=== PATIENT | female | born 1955 | race Hispanic/Latino ===

== ENCOUNTER 2022-08-10 02:01 | Emergency (ER) | payer OTHER ==
[2022-08-10] MEDS ORDERED: NA CHLORIDE 0.9% 1,000 ML ONE ×3 (02:25→05:45)
[2022-08-10] MEDS ORDERED: ONDANSETRON 4 MG/2 ML VIAL ONE ×2 (03:10→05:09)
[2022-08-10] MEDS ORDERED: CEFTRIAXONE 1000 MG/VIAL ONE (03:10)
[2022-08-10] MEDS ORDERED: FAMOTIDINE 20 MG/2 ML VIAL IV ONE (03:11)
[2022-08-10] MEDS ORDERED: NA CHLORIDE 0.9% 250 ML ONE ×2 (03:11→06:17)
[2022-08-10] MEDS ORDERED: AZITHROMYCIN 500 MG INJ IVPB ONE (03:11)
[2022-08-10 03:20] LABS: Absolute Lymphocytes (CBC) 2.5 K/uL (0.7-4.9); Hematocrit 49.1 % (36.0-45.0); Lymphocytes % 18.6 % (15.3-44.8); MCV 93.4 fL (80-100); MPV 8.6 fL (7.6-11.3); RBC Red Blood Cell Count 5.26 M/uL (3.86-4.86)
[2022-08-10 03:21] LABS: Protime INR 1.04
[2022-08-10 03:22] LABS: Urine Blood Trace-intact (Negative); Urine Glucose Negative (Negative); Urine Protein 2+ (Negative); Urine Specific Gravity >=1.030 (1.005-1.030)
[2022-08-10 03:23] LABS: Albumin 3.2 g/dL (3.4-5.0); Bilirubin Direct 0.2 mg/dL (0-0.2); Bilirubin Total 0.6 mg/dL (0.2-1.0); Magnesium 2.3 mg/dL (1.8-2.4); Potassium 4.1 mmol/L (3.5-5.1); Protein, Total 6.8 g/dL (6.4-8.2)
[2022-08-10 03:24] LABS: Troponin High Sensitivity 184.3 pg/mL (<58.9)
[2022-08-10] MEDS ORDERED: DIGOXIN 0.25 MG/ML AMP ONE (03:24)
[2022-08-10] MEDS ORDERED: METOPROLOL TARTRATE 5 MG/5 ML INJ IV ONE (03:53)
[2022-08-10] MEDS ORDERED: HYDROCORTISONE SUC 100 MG INJ ONE (03:54)
[2022-08-10] MEDS ORDERED: Magnesium Sulfate 2gm IVPB 0 G/0 ML BAG IV ONE (03:54)
[2022-08-10 03:56] LABS: Thyroid Stimulating Hormone 5.39 uIU/mL (0.360-3.740)
[2022-08-10] MEDS ORDERED: MAGNESIUM SULFATE 1 gm IVPB 0 GM/0 ML BAG IV ONE (03:56)
[2022-08-10 03:58] LABS: SARS-COV-2 RT PCR NEGATIVE (NEGATIVE)
[2022-08-10] MEDS ORDERED: SODIUM BICARB 50 MEQ/50ML VIAL ONE (05:30)
[2022-08-10] MEDS ORDERED: D5W 1,000 ML IV ONE (05:30)
--- NOTE | 2022-08-10 05:42 | ER ---
Nurse's Notes [facility] Name: Virginia Tobias Age: 67 yrs Sex: Female : 1955 Arrival Date: 08/10/2022 Time: 02:05 Bed 6 Private MD: Diagnosis: Hypotension, unspecified;Hypothermia, initial encounter;Nausea;Vomiting;Type 2 diabetes mellitus with hyperglycemia;Acute kidney failure, unspecified;Hypo-osmolality and hyponatremia;Obesity, unspecified;Persistent atrial fibrillation-WITH RVR;Influenza due to identified novel influenza A virus;Weakness;Non ST elevation [place] Presentation: 08/10 02:15 Chief complaint: Patient states: she was diagnosed with the flu with symptoms x 5 days bb shortness of breath, vomiting, can't hold anything down. Coronavirus screen: Client presents with at least one sign or symptom that may indicate coronavirus-19. Ebola Screen: No symptoms or risks identified at this time. Initial Sepsis Screen: Does the patient meet any 2 criteria? RR > 20 per min. HR > 90 bpm. Does the patient have a suspected source of infection? Yes: Productive cough/pneumonia. Risk Assessment: Do you want to hurt yourself or someone else? Patient reports no desire to harm self or others. Onset of symptoms was August 05, 2022. 02:15 Method Of Arrival: Wheelchair bb 02:15 Acuity: RAFFI 3 bb Historical: - Allergies: 02:36 Codeine; bb 02:36 eggs; bb - Home Meds: 02:36 levothyroxine oral [Active]; Verapamil Oral [Active]; atorvastatin oral [Active]; bb Humalog Mix 75-25 Sub-Q [Active]; - PMHx: 02:36 Hypertensive disorder; Diabetes mellitus; bb - Immunization history:: Client reports having NOT received the Covid vaccine. - Social history:: Smoking status: unknown. - Family history:: not pertinent. Screenin:04 Abuse screen: Denies threats or abuse. Denies injuries from another. Nutritional tw5 screening: No deficits noted. Tuberculosis screening: No symptoms or risk factors identified. Fall Risk IV access (20 points). Gait- Weak (10 pts.). Assessment: 03:04 General: Reports feeling ill for 2-3 days, Daughter states '" My mom has been ill for tw5 several days now throwing up, complaining of chills, and she has become increasingly weak.". Neuro: Level of Consciousness is obeys commands. Cardiovascular: Capillary refill is sluggish in bilateral fingers. Respiratory: Respiratory pattern is hyperventilation. Derm: Skin is pale, fingers and lips are pale/bluish in color. 03:30 Cardiovascular: Rhythm is atrial fibrillation with rapid ventricular response. tw5 04:40 General: In CT patient momentarily became unresponsive to painful stimuli for 1 min. tw5 Patient is now oriented, but lethargic. . Neuro: Level of Consciousness is obeys commands, lethargic. 04:58 Reassessment: Patient states symptoms have not improved. kl 06:50 General: Appears comfortable, Behavior is calm, cooperative. Neuro: Level of kl Consciousness is awake, alert, obeys commands. Cardiovascular: Rhythm is sinus rhythm. Respiratory: Airway is patent Trachea midline Respiratory effort is even, shallow. GI: No deficits noted. No signs and/or symptoms were reported involving the gastrointestinal system. : No deficits noted. No signs and/or symptoms were reported regarding the genitourinary system. 07:00 Reassessment: Report received from KIMBERLY Waggoner. mb9 07:15 General: Appears uncomfortable, Behavior is anxious. Pain: Denies pain. Neuro: Level of mb9 Consciousness is awake, alert, obeys commands, lethargic. Cardiovascular: Heart tones S1 S2 present Capillary refill is sluggish in bilateral fingers toes Rhythm is sinus rhythm. Respiratory: Airway is patent Respiratory effort is even, shallow, Respiratory pattern is tachypnea Breath sounds with wheezes bilaterally. GI: Abdomen is round non-distended, Patient currently denies diarrhea, nausea, vomiting. : Aburto in place. EENT: No signs and/or symptoms were reported regarding the EENT system. Derm: Skin with poor turgor Skin is dry, Skin is pale, Skin temperature is cool. Musculoskeletal: Range of motion: intact in all extremities. 07:52 Reassessment: Called report to transferring nurse at [facility], Clarisa Agrawal RN. mb9 08:20 Reassessment: Report given to [facility] by Sami Barrett. mb9 Vital Signs: 02:15 BP 111 / 90; Pulse 68; Resp 22 S; Temp 93.5(A); Pulse Ox 99% on R/A; Weight 99.34 kg bb (R); Height 5 ft. 1 in. (154.94 cm) (R); Pain 0/10; 03:45 BP 114 / 68; Pulse 151; Resp 24; Pulse Ox 92% on 2 lpm NC; tw5 04:40 BP 97 / 82; Pulse 81; Resp 26; tw5 05:53 BP 100 / 87; Pulse 85; Resp 26 S; Temp 97.4(C); bb 06:56 BP 121 / 80; Pulse 83; Resp 27; Temp 96.7(C); kl 07:15 BP 99 / 86; Pulse 86; Resp 30; Temp 96.5(C); Pulse Ox 100% on 3 lpm NC; Pain 0/10; mb9 02:15 Body Mass Index 41.38 (99.34 kg, 154.94 cm) bb 03:45 provider notifed tw5 04:40 unable to obtain oral temp or pulse ox despite multiple locations. Provider notifed. RT tw5 paged for ABG ED Course: 02:05 Patient arrived in ED. ja2 02:11 True Whiting MD is Attending Physician. vida 02:14 Cyn Miner is Primary Nurse. tw5 02:36 Triage completed. bb 02:36 Arm band placed on Patient placed in an exam room, on a stretcher, on pulse oximetry. bb Family accompanied patient. 02:37 XRAY Chest (1 view) In Process Unspecified. EDMS 03:04 Patient has correct armband on for positive identification. Placed in gown. Bed in low tw5 position. Call light in reach. Side rails up X 1. Adult w/ patient. Client placed on continuous cardiac and pulse oximetry monitoring. NIBP monitoring applied. Door closed. Noise minimized. Moved to private room. Warm blanket given. Verbal reassurance given. Stacey hugger applied. IV fluids warmed. 03:04 Initial lab(s) drawn, by forestry farm laborer, sent to lab. First set of blood cultures drawn by tw5 lab staff. Second set of blood cultures drawn by lab staff. COVID swab sent to lab. 03:06 COVID-19/FLU A+B Sent. tw5 03:07 Basic Metabolic Panel Sent. tw5 03:07 CBC with Diff Sent. tw5 03:07 LFT's Sent. tw 03:07 Magnesium Sent. tw5 03:07 NT PRO-BNP Sent. tw 03:07 PT-INR Sent. tw 03:07 Troponin HS Sent. tw 03:07 Lipase Sent. tw 03:07 Blood Culture Adult (2) Sent. tw5 03:15 EKG done, by ED staff, reviewed by True Whiting MD. tw5 03:27 Notified ED physician of a critical lab result(s). troponin of 184.3 Dr Henok prado notified. 03:34 Notified ED physician of a critical lab result(s). lactate of 8.0 Dr Whiting notified. bb 03:37 Oxygen administration via nasal cannula \\T\\ 2L/min. tw5 03:37 Inserted saline lock: 20 gauge in right antecubital area, using aseptic technique. tw 03:45 Inserted saline lock: 22 gauge in right hand, using aseptic technique. tw5 03:53 COVID-19/FLU A+B Sent. tw5 04:30 Aburto cath inserted, using sterile technique, 18 Fr., balloon inflated, other temp kl probe applied. 04:31 Head C Spine Cap Wo Con In Process Unspecified. EDMS 04:40 20 G RAC ripped out in CT. Oxygen administration via nasal cannula \\T\\ 3L/min. tw5 04:45 Assisted provider with central line placement. Set up central line tray. Line placed by yudy Whiting MD Dressed with Tape, Tegaderm, Patient tolerated well. Before procedure, did Practitioner(s) obtain informed consent? Yes. Was handwashing/sanitizing done immediately prior to procedure? Yes. Was procedure site sterilized? Yes, with chlorhexidine. Was the site allowed to dry? Yes. Was local anesthetic and/or sedation utilized? Yes. During the procedure, did the Practitioner(s) maintain a sterile field? Yes. Were unused ports clamped during insertion? Yes. Was a 2nd qualified MD obtained after 3 unsuccessful insertion attempts? No. Was blood aspirated from each lumen? Yes. 04:50 Missed attempt(s): 20 gauge in left antecubital area. 22 gauge in right forearm. tw5 Bleeding controlled, band aid applied, catheter tip intact. 05:51 initiated a transfer with Johnny from [facility]. mw2 06:38 initiated a transfer with Gisella Barrios from [facility] Transfer Center. mw2 06:[address] Whiting with the Doctor from [facility]. mw2 07:01 administrative approval given by Gisella Barrios/ patient has been accepted to [address] 8 A 801/ Dr. Lira accepted the patient in transfer/report to be called to [phone]. Administered Medications: 03:34 Drug: Digoxin 0.5 mg Route: IVP; Site: right antecubital; tw5 03:35 Drug: NS 0.9% 1000 ml Route: IV; Rate: 1000 bolus; Site: right antecubital; tw5 03:47 Drug: Pepcid (famotidine) 20 mg Route: IVP; Site: right antecubital; tw5 03:47 Drug: Zofran (Ondansetron) 4 mg Route: IVP; Site: right antecubital; tw5 03:48 Drug: Rocephin (cefTRIAXone) 1 grams Route: IV; Rate: per protocol; Site: right hand; tw5 04:03 Drug: Solu-CORTEF (hyrdoCORTISONE) 100 mg Route: IVP; Site: right hand; tw5 04:03 Drug: Lopressor (metoprolol) 2.5 mg Route: IVP; Site: right hand; tw5 04:55 Not Given (Duplicate Order): NS 0.9% 1000 ml IV at 125 ml/hr continuous vida 04:56 Drug: NS 0.9% 500 ml Route: IV; Rate: bolus; Site: right hand; kl 04:57 Drug: Zithromax (azithromycin) 500 mg Route: IVPB; Infused Over: 1 hrs; Site: right kl hand; 06:03 Follow up: IV Status: Completed infusion; IV Intake: 250ml la1 06:02 Drug: D5W 1000 ml, Sodium Bicarbonate 150 mEq Route: IV; Rate: 100 ml/hr; Site: right la1 femoral; 06:02 Drug: NS 0.9% 500 ml Route: IV; Rate: bolus; Site: right femoral; la1 06:02 Drug: NS 0.9% 1000 ml Route: IV; Rate: 1 bolus; Site: right femoral; la1 06:15 Drug: Heparin ([place] Drip) 12 units/kg/hr - (HEParin 86409 units, D5W 500 ml) kl {Co-Signature: ll3 (Gavin Goldberg RN).} Route: IV; Rate: calculated rate; Site: right femoral; 06:46 Drug: Aspirin Suppository 300 mg Route: LA; kl 06:47 Drug: vancoMYCIN 1 grams Route: IVPB; Infused Over: 2 hrs; Site: right femoral; kl 06:59 Drug: Heparin ([place]-Bolus No thrombolytic) - HEParin 60 units/kg {Co-Signature: ll3 kl (Gavin Goldberg RN).} Route: IVP; Site: right femoral; Medication: 03:04 VIS not applicable for this client. tw5 Intake: 06:03 IV: 250ml; Total: 250ml. la1 Outcome: 05:42 ER care complete, transfer ordered by . vida 08:51 Transferred to [facility], Transfer form completed. mb9 08:51 Condition: stable 08:51 Discharge instructions given to patient, family, Instructed on the need for transfer. 08:54 Patient left the ED. mb9 Signatures: Dispatcher [employer] EDMS Breann Watson, RN True Vinson MD MD cha Ballard, Brenda, RN RN Tani Kinney, BLIND CLEANER-C BLIND CLEANER-Cla1 Tati Bowman mw2 Ellen Plasencia Tiffany tw5 Giulia Bueno RN RN mb9 Gavin Goldberg RN ll3 Corrections: (The following items were deleted from the chart) 02:38 02:36 Allergies: Abke-Bfzkve-Tbdb; eve prado 05:25 05:25 Missed attempt(s): 20 gauge in left antecubital area. 22 gauge in right forearm. tw5 Bleeding controlled, band aid applied, catheter tip intact. tw5 06:43 06:38 initiated a transfer with Aury from [facility] mw2 mw2
--- NOTE | 2022-08-10 05:42 | EDPHYS ---
Physician Documentation [facility] Name: Virginia Tobias Age: 67 yrs Sex: Female : 1955 Arrival Date: 08/10/2022 Time: 02:05 Bed 6 Private MD: SHANE Physician True Whiting HPI: 08/10 02:25 This 67 yrs old Female presents to ER via Unassigned with complaints of Flu vida Symptoms. 02:25 The patient has shortness of breath at rest, with light activity. Onset: The vida symptoms/episode began/occurred 5 day(s) ago. Duration: The symptoms are continuous, and are steadily getting worse. The patient's shortness of breath is aggravated by coughing, light activity. The patient presents with abdominal pain in the upper abdomen, abdominal distention in the upper abdomen, in the lower abdomen. Onset: The symptoms/episode began/occurred 5 day(s) ago. The patient or guardian reports airway noise, cough, flu symptoms, arthralgias, low-grade fever, myalgias. Modifying factors: The symptoms are alleviated by remaining still, the symptoms are aggravated by nothing. Associated signs and symptoms: Pertinent positives: non-productive cough, nausea, vomiting. Severity of symptoms: At their worst the symptoms were moderate in the emergency department the symptoms are unchanged despite home interventions. Historical: - Allergies: 02:36 Codeine; bb 02:36 eggs; bb - Home Meds: 02:36 levothyroxine oral [Active]; Verapamil Oral [Active]; atorvastatin oral [Active]; bb Humalog Mix 75-25 Sub-Q [Active]; - PMHx: 02:36 Hypertensive disorder; Diabetes mellitus; bb - Immunization history:: Client reports having NOT received the Covid vaccine. - Social history:: Smoking status: unknown. - Family history:: not pertinent. ROS: 02:27 Constitutional: Negative for fever, chills, and weight loss, Eyes: Negative for injury, vida pain, redness, and discharge, ENT: Negative for injury, pain, and discharge, Neck: Negative for injury, pain, and swelling, Cardiovascular: Negative for chest pain, palpitations, and edema, Back: Negative for injury and pain, : Negative for injury, bleeding, discharge, and swelling, MS/Extremity: Negative for injury and deformity, Skin: Negative for injury, rash, and discoloration, Neuro: Negative for headache, weakness, numbness, tingling, and seizure, Psych: Negative for depression, anxiety, suicide ideation, homicidal ideation, and hallucinations, Allergy/Immunology: Negative for hives, rash, and allergies, Endocrine: Negative for neck swelling, polydipsia, polyuria, polyphagia, and marked weight changes, Hematologic/Lymphatic: Negative for swollen nodes, abnormal bleeding, and unusual bruising. 02:27 Respiratory: Positive for cough, "sounds productive", shortness of breath, on exertion. 02:27 Abdomen/GI: Positive for nausea and vomiting. Exam: 02:27 Constitutional: This is a well developed, well nourished patient who is awake, alert, vida and in no acute distress. Head/Face: Normocephalic, atraumatic. Eyes: Pupils equal round and reactive to light, extra-ocular motions intact. Lids and lashes normal. Conjunctiva and sclera are non-icteric and not injected. Cornea within normal limits. Periorbital areas with no swelling, redness, or edema. ENT: Nares patent. No nasal discharge, no septal abnormalities noted. Tympanic membranes are normal and external auditory canals are clear. Oropharynx with no redness, swelling, or masses, exudates, or evidence of obstruction, uvula midline. Mucous membranes moist. Neck: Trachea midline, no thyromegaly or masses palpated, and no cervical lymphadenopathy. Supple, full range of motion without nuchal rigidity, or vertebral point tenderness. No Meningismus. Chest/axilla: Normal chest wall appearance and motion. Nontender with no deformity. No lesions are appreciated. Abdomen/GI: Soft, non-tender, with normal bowel sounds. No distension or tympany. No guarding or rebound. No evidence of tenderness throughout. Back: No spinal tenderness. No costovertebral tenderness. Full range of motion. Female : Normal external genitalia. Skin: Warm, dry with normal turgor. Normal color with no rashes, no lesions, and no evidence of cellulitis. 02:27 Cardiovascular: Rate: tachycardic, Rhythm: regular, Pulses: Pulses are 4+ in bilateral radial, brachial, femoral, popliteal, posterior tibial and and dorsalis pedis arteries.. Heart sounds: normal, Edema: is not appreciated, JVD: is not appreciated. Vital Signs: 02:15 BP 111 / 90; Pulse 68; Resp 22 S; Temp 93.5(A); Pulse Ox 99% on R/A; Weight 99.34 kg bb (R); Height 5 ft. 1 in. (154.94 cm) (R); Pain 0/10; 03:45 BP 114 / 68; Pulse 151; Resp 24; Pulse Ox 92% on 2 lpm NC; tw5 04:40 BP 97 / 82; Pulse 81; Resp 26; tw5 05:53 BP 100 / 87; Pulse 85; Resp 26 S; Temp 97.4(C); bb 06:56 BP 121 / 80; Pulse 83; Resp 27; Temp 96.7(C); kl 07:15 BP 99 / 86; Pulse 86; Resp 30; Temp 96.5(C); Pulse Ox 100% on 3 lpm NC; Pain 0/10; mb9 02:15 Body Mass Index 41.38 (99.34 kg, 154.94 cm) 03:45 provider notifed tw5 04:40 unable to obtain oral temp or pulse ox despite multiple locations. Provider notifed. RT tw5 paged for ABG Procedures: 05:42 Central Line: the site was prepped with Betadine, in sterile fashion, a triple lumen vida catheter was inserted, in the right in 2 attempts. placement was verified, by blood return, the site was dressed with using sterile technique, the patient tolerated the procedure, well. MDM: 02:11 Patient medically screened. vida 02:31 Differential diagnosis: Anemia asthma, Bronchitis CHF exacerbation, Chronic Obstructive vida Pulmonary Disease obstructed airway, bronchitis, flu, URI, Myocardial Infarction pneumonia, pulmonary edema, reactive airway disease, Sepsis Unstable Angina. Antibiotic administration: Rocephin and Zithromax given. The patient's Wells Deep Vein Thrombosis Score was calculated as follows: Heart Rate >100 BPM (1.5 Pts) Total Score: 0-2 Pts- Low Risk. The patient's pulmonary embolism risk score was calculated as follows: the patients heart rate is greater than 100 beats per minute (1.5 Pts) Total Score: 0-2 points. This patient was found to be at low risk for a pulmonary embolism by using the Well's assessment criteria. Immunization status: Pneumococcal vaccine: Influenza vaccine: Data reviewed: vital signs, nurses notes, lab test result(s), EKG, radiologic studies, plain films. Data interpreted: playground monitor: rate is 100 beats/min, rhythm is regular, Pulse oximetry: on room air is 95 %. Test interpretation: by ED physician or midlevel provider: ECG, plain radiologic studies. Counseling: I had a detailed discussion with the patient and/or guardian regarding: the historical points, exam findings, and any diagnostic results supporting the discharge/admit diagnosis, lab results, radiology results, the need for further work-up and treatment in the hospital. 08/10 02:21 Order name: Basic Metabolic Panel; Complete Time: 04:27 [facility] 08/10 02:21 Order name: CBC with Diff; Complete Time: 03:23 [facility] 08/10 02:21 Order name: LFT's; Complete Time: 04:27 [facility] 08/10 02:21 Order name: Magnesium; Complete Time: 04:27 [facility] 08/10 02:21 Order name: NT PRO-BNP; Complete Time: 04:27 [facility] 08/10 02:21 Order name: PT-INR; Complete Time: 03:23 [facility] 08/10 02:21 Order name: Troponin HS; Complete Time: 04:27 [facility] 08/10 02:21 Order name: Lipase; Complete Time: 04:27 [facility] 08/10 02:21 Order name: Lactate w/ 2H reflex if indic.; Complete Time: 03:41 [facility] 08/10 02:21 Order name: Blood Culture Adult (2) [facility] 08/10 02:27 Order name: COVID-19/FLU A+B; Complete Time: 04:08 [facility] 08/10 03:00 Order name: Glucose, Ancillary Testing; Complete Time: 03:02 [facility] 08/10 03:23 Order name: Urine Dipstick-Ancillary; Complete Time: 03:23 [facility] 08/10 02:21 Order name: XRAY Chest (1 view) [facility] 08/10 03:23 Order name: CT Traumagram (Head C Spine CAP wo con) [facility] 08/10 03:27 Order name: Head C Spine Cap Wo Con [facility] 08/10 03:34 Order name: Thyroid Stimulating Hormone; Complete Time: 04:27 [facility] 08/10 03:59 Order name: T4 Free; Complete Time: 04:27 [facility] 08/10 04:18 Order name: ABG; Complete Time: 06:50 vida 08/10 05:26 Order name: CMP; Complete Time: 06:50 mw2 08/10 06:59 Order name: Lactate Sepsis 2 HR Follow-up EDMS 08/10 02:21 Order name: EKG; Complete Time: 02:22 vida 08/10 02:21 Order name: Cardiac monitoring; Complete Time: 03:07 vida 08/10 02:21 Order name: EKG - Nurse/Tech; Complete Time: 04:00 [facility] 08/10 02:21 Order name: IV Saline Lock; Complete Time: 03:07 [facility] 08/10 02:21 Order name: Labs collected and sent; Complete Time: 03:07 vida 08/10 02:21 Order name: O2 Per Protocol; Complete Time: 03:07 [facility] 08/10 02:21 Order name: O2 Sat Monitoring; Complete Time: 03:07 [facility] 08/10 02:21 Order name: Urine Dipstick-Ancillary (obtain specimen); Complete Time: 04:06 [facility] 08/10 02:35 Order name: IV Saline Lock - Large Bore; Complete Time: 03:53 [facility] 08/10 02:35 Order name: Misc. Order: MERARI THOMASGGER; Complete Time: 03:06 [facility] 08/10 03:45 Order name: Aburto; Complete Time: 07:09 vida 08/10 04:28 Order name: Central Line Kit; Complete Time: 06:02 [facility] 08/10 04:28 Order name: EKG; Complete Time: 04:28 [facility] 08/10 04:28 Order name: EKG - Nurse/Tech; Complete Time: 06:59 [facility] Administered Medications: 03:34 Drug: Digoxin 0.5 mg Route: IVP; Site: right antecubital; tw5 03:35 Drug: NS 0.9% 1000 ml Route: IV; Rate: 1000 bolus; Site: right antecubital; tw5 03:47 Drug: Pepcid (famotidine) 20 mg Route: IVP; Site: right antecubital; tw5 03:47 Drug: Zofran (Ondansetron) 4 mg Route: IVP; Site: right antecubital; tw5 03:48 Drug: Rocephin (cefTRIAXone) 1 grams Route: IV; Rate: per protocol; Site: right hand; tw5 04:03 Drug: Solu-CORTEF (hyrdoCORTISONE) 100 mg Route: IVP; Site: right hand; tw5 04:03 Drug: Lopressor (metoprolol) 2.5 mg Route: IVP; Site: right hand; tw5 04:55 Not Given (Duplicate Order): NS 0.9% 1000 ml IV at 125 ml/hr continuous vida 04:56 Drug: NS 0.9% 500 ml Route: IV; Rate: bolus; Site: right hand; kl 04:57 Drug: Zithromax (azithromycin) 500 mg Route: IVPB; Infused Over: 1 hrs; Site: right kl hand; 06:03 Follow up: IV Status: Completed infusion; IV Intake: 250ml la1 06:02 Drug: D5W 1000 ml, Sodium Bicarbonate 150 mEq Route: IV; Rate: 100 ml/hr; Site: right la1 femoral; 06:02 Drug: NS 0.9% 500 ml Route: IV; Rate: bolus; Site: right femoral; la1 06:02 Drug: NS 0.9% 1000 ml Route: IV; Rate: 1 bolus; Site: right femoral; la1 06:15 Drug: Heparin ([place] Drip) 12 units/kg/hr - (HEParin 94540 units, D5W 500 ml) kl {Co-Signature: ll3 (Gavin Goldberg RN).} Route: IV; Rate: calculated rate; Site: right femoral; 06:46 Drug: Aspirin Suppository 300 mg Route: AL; kl 06:47 Drug: vancoMYCIN 1 grams Route: IVPB; Infused Over: 2 hrs; Site: right femoral; kl 06:59 Drug: Heparin ([place]-Bolus No thrombolytic) - HEParin 60 units/kg {Co-Signature: ll3 kl (Gavin Goldberg RN).} Route: IVP; Site: right femoral; Disposition Summary: 08/10/22 05:42 Transfer Ordered Reason: Higher level of care vida Condition: Serious vida Problem: new vida Symptoms: have improved ivda Transfer Location: [facility]-System(08/10/22 06:40) vida Accepting Physician: TO ICU [facility](08/10/22 08:54) mb9 Diagnosis - Hypotension, unspecified vida - Hypothermia, initial encounter vida - Nausea vida - Vomiting vida - Type 2 diabetes mellitus with hyperglycemia vida - Acute kidney failure, unspecified vida - Hypo-osmolality and hyponatremia vida - Obesity, unspecified vida - Persistent atrial fibrillation - WITH RVR vida - Influenza due to identified novel influenza A virus vida - Weakness vida - Non ST elevation [place] vida Forms: - Medication Reconciliation Form vida - SBAR form vida Signatures: Dispatcher [employer] EDBreann Villalobos RN RN True Suazo MD MD cha Ballard, Brenda, RN RN Tani Kinney, AIRPLANE TECHNICIAN-C AIRPLANE TECHNICIAN-Meagan1 Cyn Miner 5 Giulia Bueno RN RN mb9 Gavin Goldberg RN ll3 Corrections: (The following items were deleted from the chart) 02:38 02:36 Allergies: Raqi-Tffabh-Rnhp; eve prado 03:34 03:24 THYROID STIMULAT HORMONE+C.LAB.BRZ ordered. EDIA EDMS 05:58 05:42 TO ICU [facility] vida vida 06:40 05:42 [facility] vida vida 06:40 05:58 TO ICU [facility] vida 08:54 06:40 TO ICU [facility] [place]
[2022-08-10 06:01] LABS: Albumin 2.7 g/dL (3.4-5.0); Bilirubin Total 0.3 mg/dL (0.2-1.0); Potassium 5.3 mmol/L (3.5-5.1); Protein, Total 5.4 g/dL (6.4-8.2)
[2022-08-10] MEDS ORDERED: HEPARIN 5000 UNIT/ML 1 ML VIAL ONE (06:17)
[2022-08-10] MEDS ORDERED: VANCOMYCIN 1 GM/VIAL ONE (06:17)
[2022-08-10] MEDS ORDERED: HEPARIN/D5W 25,000 UNIT/500 ML BAG IV ONE (06:17)
[2022-08-10] MEDS ORDERED: ASPIRIN 300 MG/SUPP ONE (06:25)
[2022-08-10 06:27] LABS: Arterial Blood Carboxyhemoglob 0.2 % (0-1.5); Blood Gas Oxyhemoglobin 95.6 % (94-97); Blood O2 Saturation 97.1 % (92-98.5)
--- NOTE | 2022-08-10 13:39 | RAD REPORT ---
EXAM DESCRIPTION: CT - Head C Spine Cap Wo Con - 08/10/2022 7:14 am CLINICAL HISTORY: 67 years Female FALL TECHNIQUE: Multiple axial CT images of the brain, cervical spine, chest, abdomen and pelvis were per formed followed by sagittal and coronal reconstructed images. The CT study is performed according to ALARA (as low as reasonably achievable) or ALARA/IMAGE GENTLY, with automatic adjustment of mA and/or kV according to patient size. Performed on: 08/10/2022 at 3:45 AM COMPARISON: No prior studies were available for comparison.. FINDINGS: CT HEAD: There is no evidence of mass, acute mass effect or midline shift. There are no acute extra-axial flui d collections. There is no evidence of acute intracranial hemorrhage. The cerebral sulci and ventricles are prominent consistent with mild cerebral volume loss. There are scattered areas of decreased attenuation within the subcortical and periventricular white m atter most likely due to mild chronic microangiopathy. There is no significant mucosal thickening of the paranasal sinuses. The mastoid air cells are clear. The orbital contents are grossly unremarkable. No acute osseous abnormalities are identified. No focal soft tissue abnormalities are identified. There is air within the subcutaneous soft tissues likely within superficial venous structures likely iatrogenic and incidental in nature from air in an intravenous line. CT CERVICAL SPINE: The cervical vertebrae are normal in height. There is normal alignment of the vertebrae. The disc spa jayce are well preserved in height. Bone mineralization is normal. The atlanto-axial articulation is preserved and the odontoid process is intact. There is normal alignment of the facet joints on the parasagittal images. There is minimal degenerati ve spurring of the vertebral endplates, most pronounced at C7-T1. There is no evidence of acute fracture or subluxation. There is no significant canal stenosis. Ther e is no significant neural foraminal stenosis. The paravertebral and paraspinal soft tissues are un remarkable. There is mild fibrosis and/or atelectasis in the visualized lung apices. CHEST: Lungs: The lungs are well-expanded. There is minimal scattered fibrosis and/or atelectasis throughout the lungs. No focal airspace consolidation is identified. There are no pleural effusion. There is no pneumothorax. The central airways are grossly patent. Heart: The heart is normal in size. There is a small pericardial effusion. There are mild coronar y artery calcifications. Mediastinum: The mediastinum is unremarkable. The mediastinal vessels are normal in caliber and con tour. There are mild atherosclerotic calcifications along the thoracic aorta. Bones: No acute osseous abnormalities are identified. The thoracic vertebrae are normal in height and alignment. There is mild degenerative spurring along the vertebral endplates. There is motion artifa ct extending through the inferior sternum resulting in degradation of image quality. No definite acut e sternal fracture is identified. Soft tissues: No focal soft tissue abnormalities are identified. Lymphadenopathy: No pathologic hilar, mediastinal or axillary lymphadenopathy is identified. ABDOMEN/PELVIS: Liver: The liver is normal in size and configuration. No focal hepatic abnormalities are identified. Liver attenuation is within normal limits. Spleen: The spleen is normal is size, configuration and attenuation. Gallbladder and bile duct: The gallbladder is well distended and unremarkable. There is no biliary ductal dilatation. Pancreas: The pancreas is grossly normal in size and configuration. Adrenal Glands: The adrenal glands are normal in size and configuration. Kidneys: The kidneys are normal in size and configuration. There is no evidence of hydronephrosis. Th ere is no evidence of nephrolithiasis. No definite solid or cystic renal mass lesions are identified. Stomach: The stomach is grossly normal. There is no definite hiatal hernia. Bowel: The bowel gas pattern is non specific and non obstructive. Appendix: The appendix is normal. Free air: There is no evidence of free air. Free fluid: There is no evidence of free fluid. Vasculature: The aorta is normal in caliber and contour. The inferior vena cava is grossly unremarkab le. Lymphadenopathy: No pathologic lymphadenopathy is identified. Bladder: The bladder is decompressed on this examination. Reproductive: The uterus is surgically absent. Bones: No acute osseous abnormalities are identified. The lumbar vertebrae are normal in height and a lignment. The bony pelvis and proximal femurs are intact. Soft tissues: No acute soft tissue abnormalities are identified. IMPRESSION: CT HEAD: 1. No evidence of acute intracranial pathology. 2. Mild cerebral atrophy with findings compatible with chronic microangiopathy. 3. There is air within the subcutaneous soft tissues within superficial venous structures likely ia trogenic and incidental in nature from air in an intravenous line. CT CERVICAL SPINE: 1. No evidence of acute osseous injury involving the cervical spine. 2. Mild degenerative changes of the cervical spine as described above. CT CHEST: 1. No evidence of acute intrathoracic disease. 2. Small pericardial effusion. 3. There is motion artifact extending through the inferior sternum resulting in degradation of imag e quality. No definite acute sternal fracture is identified. 4. No evidence of acute osseous injury involving the bony thorax or thoracic spine. CT ABDOMEN AND PELVIS: 1. No evidence of acute intra-abdominal or intrapelvic pathology. 2. Status post hysterectomy. 3. No evidence of acute lumbar spine injury or other acute osseous abnormality Electronically signed by: Tasha Harrison DO 08/10/2022 5:13 AM PPA TEACHER Due to temporary technical issues with the PACS/Fluency reporting system, reports are being signed by the in house radiologists without review as a courtesy to insure prompt reporting. The interpreting radiologist is fully responsible for the content of the report.
[2022-08-10 13:51] VITALS: BP 99/86; TEMP 96.5; O2SAT 100
--- NOTE | 2022-08-10 14:34 | RAD REPORT ---
EXAM DESCRIPTION: RAD - Chest Single View - 08/10/2022 2:36 am CLINICAL HISTORY: 67 years, Female, Cough COMPARISON: None FINDINGS: Single view of the chest was obtained portable. No prior films are available for compariso n. The lung volume is slightly decreased. The cardiomediastinal silhouette demonstrate to be unremark able. The heart is not enlarged. The thoracic aorta mildly tortuous. Slight prominence of the pulmona ry markings perhaps related to technique/or possibility of early fluid overload could be of considera tion. No significant pleural effusions/or focal areas of consolidation. The rest of the soft tissue and bony structures demonstrate to be unremarkable. IMPRESSION: Slight prominence of the pulmonary markings perhaps related to technique/or possibility of early fluid overload could be of consideration. Electronically signed by: Markel Davis MD 08/10/2022 2:54 AM ASSISTANT PROFESSOR OF MUSIC Due to temporary technical issues with the PACS/Fluency reporting system, reports are being signed by the in house radiologists without review as a courtesy to insure prompt reporting. The interpreting radiologist is fully responsible for the content of the report.
== END 2022-08-10 08:54 | disposition short-term general hospital (02) ==
LOC: ER 02:01
PROC: 05HP33Z Insertion of Infusion Device into Right External Jugular Vein, Percutaneous Approach (ICD-10-PCS; principal; 2022-08-10)
DX: J10.1 Influenza due to other identified influenza virus with other respiratory manifestations (principal); I21.4 Non-ST elevation (NSTEMI) myocardial infarction; I48.19 Other persistent atrial fibrillation; I95.9 Hypotension, unspecified; Z20.822 Contact with and (suspected) exposure to COVID-19; T68.XXXA Hypothermia, initial encounter; E11.22 Type 2 diabetes mellitus with diabetic chronic kidney disease; N18.9 Chronic kidney disease, unspecified; E11.65 Type 2 diabetes mellitus with hyperglycemia; E87.1 Hypo-osmolality and hyponatremia; R53.1 Weakness; E66.9 Obesity, unspecified; Z68.41 Body mass index [BMI] 40.0-44.9, adult
CPT/HCPCS: 93005 ×2; 87040 ×2; 85025; 80048; 36415; 83735; 85610; 82947; 80076; 83605 ×2; 84443; 81003; 84484; 84439; 83690; 80053; 83880; 0240U; 70450; 71250; 72125; 71045; 82805; 36556; J1160; J1644 ×2; J0456; J3370; J7050 ×2; J7030 ×3; J1720; J2405 ×2; J3475